=== PATIENT | female | born 2000 | race Caucasian/White ===

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

== ENCOUNTER 2020-05-15 05:13 | Inpatient (IN) | payer MEDICAID ==
[2019-11-01 20:14] VITALS: Ht 165.1 cm; Wt 76.7 kg
[~2020-05-15] VITALS: Ht 165.1 cm; Wt 76.7 kg
[2020-05-15] MEDS ORDERED: AMOXICILLIN875 MG (05:24)
[2020-05-15 07:31] LABS: HEMATOCRIT 35.8 % (36.0-48.0); HEMOGLOBIN 11.9 g/dL (12-16); MCH 30.2 pg (26.0-34.0); MCHC 33.2 g/dL (31.0-37.0); MCV 90.9 fL (80.0-100.0); RBC 3.94 10x6/uL (4.00-5.40); RDW 12.9 % (11.5-14.5); WBC 10.8 10x3/uL (4.8-10.8)
[2020-05-15 07:42] LABS: UDS - AMPHET NEGATIVE QUAL (NEGATIVE); UDS - BARB NEGATIVE QUAL (NEGATIVE); UDS - BENZO NEGATIVE QUAL (NEGATIVE); UDS - COCAINE NEGATIVE QUAL (NEGATIVE); UDS - OPIATE NEGATIVE QUAL (NEGATIVE); UDS - PCP NEGATIVE QUAL (NEGATIVE); UDS - THC NEGATIVE QUAL (NEGATIVE)
[2020-05-15 19:15] VITALS: BP 108/68
--- NOTE | 2020-05-15 19:30 | NUR ---
PT REC'D IN BED AT THIS TIME. DENIED PAIN. NUMBNESS NOTED TO RT LEG AT THIS TIME. FUNDUS FIRM AND MIDLINE U/1 WITH SMALL LOCHIA NOTED. IV TO RT FOREARN CONVERTED TO SALINE LOCK AT THIS TIME. VSS. NO DISTRESS NOTED. Maude STONE, RN
--- NOTE | 2020-05-15 20:40 | NUR ---
EPIDURAL CATH REMOVED WITH TIP INTACT AT THIS TIME. PT UP TO BATHROOM. PERICARE PROVIDED AND ICE PACK PLACED TO PERINEUM. NO DISTRESS NOTED. Maude STONE RN
--- NOTE | 2020-05-15 21:31 | NUR ---
PT MEDICATED WITH MOTRIN FOR PAIN LEVEL OF 1/10. NO DISTRESS NOTED. Maude STONE RN
--- NOTE | 2020-05-15 22:38 | NUR ---
PT REC'D IN BED AT THIS TIME. DENIES PAIN OR NEEDS AT THIS TIME. NO DISTRESS NOTED. Maude STONE RN
--- NOTE | 2020-05-16 01:40 | NUR ---
PT REC'D IN BED ASLEEP AT THIS TIME. NO DISTRESS NOTED. Maude STONE RN
--- NOTE | 2020-05-16 02:00 | NUR ---
PT CALLED OUT FOR ASSISTANCE TO THE RESTROOM. PT CRYING IN PAIN AT THIS TIME. PERICARE PROVIDED, ICE PACK PLACED. OFFERED HYDROCODONE AT THIS TIME. PT REFUSED DUE TO . PT INFORMED THAT SMALL AMOUNT MAY PASS INTO BREASTMILK HOWEVER IT IS SAFE TO USE FOR COMFORT SHE NEEDS IT. PT CONTINUES TO REFUSE. Maude STONE RN
--- NOTE | 2020-05-16 02:59 | NUR ---
PT MEDICATED WITH IBUPROFEN AND GIVEN DERMOPLAST FOR PRN USE. NO DISTRESS NOTED. Maude STONE RN
--- NOTE | 2020-05-16 03:49 | NUR ---
BABY OUT TO PT PER THIS RN. ID BANDS VERIFIED. BABY PLACED IN PT'S ARMS. PT'S NEEDS ASSESSED. PT REQUEST FRESH ICE WATER. [facility] FILLED W/ICE WATER SERVED.
--- NOTE | 2020-05-16 06:20 | NUR ---
PT UP TO BATHROOM THIS AM AND ASSISTED WITH PERICARE. ICE PACK PLACED AND GOWN CHANGED. NO DISTRESS NOTED. Maude STONE RN
[2020-05-16 07:16] LABS: RAPID PLASMA REAGIN Non Reactive (Non Reactive)
[2020-05-16 08:19] VITALS: BP 122/60
--- NOTE | 2020-05-16 08:35 | NUR ---
PAIN MEDICATION ADMINSITERED PER EMAR. ICCE PAD PROVIDED FOR PERINEUM SWELLING. PT DENIES NEEDS AT THIS TIME.
--- NOTE | 2020-05-16 08:35 | NUR ---
PT A,A,OX4. VSS. SEE FULL ASSESSMENT PER FLOWSHEET. PIV IN RT FOREARM. SALINE LOCKED. FF,MIDLINE, U2. SMALL AMOUNT RUBRA LOCHIA NOTED. PT REQUESTS PAIN MEDICATION.
--- NOTE | 2020-05-16 11:50 | NUR ---
TOWELS AND ICE PACK PROVIDED. PT UP TO SHOWER.
--- NOTE | 2020-05-16 13:41 | NUR ---
PT . DENIES NEEDS AT THIS TIME.
--- NOTE | 2020-05-16 15:00 | NUR ---
EDUCATION DONE ON TUCKS AND PROCTOFOAM APPLICATION. PT DENIES NEEDS AT THIS TIME.
--- NOTE | 2020-05-16 15:18 | NUR ---
DISCUSSED DISCHARGE WITH DR JUÁREZ. ORDERS RECEIVED.
[2020-05-16] MEDS ORDERED: HYDROCODON-ACE1 EAC7 PO (17:16)
[2020-05-16] MEDS ORDERED: IBUPROFEN600 MG PO (17:18)
--- NOTE | 2020-05-16 17:30 | NUR ---
DISCHARGE INSTRUCTIONS GIVEN. PT VERBALIZES UNDERSTANDING.
--- NOTE | 2020-05-16 18:36 | NUR ---
R FA PIV D/C'D, TIP INTACT. BANDAID PLACED. PLACING IN CARSEAT.
--- NOTE | 2020-05-16 18:40 | NUR ---
PT DISCHARGE AND OFF UNIT VIA WHEELCHAIR WITH IN CARSEAT. PT STABLE AND DC'D TO HOME.
== END 2020-05-16 18:52 | disposition home or self-care (01) | DRG 807 ==
LOC: D.LD 05:13
PROVIDERS: ADMIT Obstetrics & Gynecology; ATTEND Obstetrics & Gynecology
PROC: 10E0XZZ Delivery of Products of Conception, External Approach (ICD-10-PCS; principal; 2020-05-15)
DX: O75.89 Other specified complications of labor and delivery (principal); Z37.0 Single live birth; J45.909 Unspecified asthma, uncomplicated; Z3A.39 39 weeks gestation of pregnancy; O26.893 Other specified pregnancy related conditions, third trimester; Z67.91 Unspecified blood type, Rh negative